=== PATIENT | male | born 1960 | race Hispanic/Latino ===

== ENCOUNTER 2019-11-30 14:02 | Emergency (ER) | payer MEDICARE ==
[2019-11-30 16:33] VITALS: BP 104/74
--- NOTE | 2019-11-30 17:35 | Ultrasound Report ---
US testicular doppler comp INDICATION / CLINICAL INFORMATION: swelling/pain left testicle. COMPARISON: None available. FINDINGS: Testicular echogenicity is slightly inhomogeneous but there are no testicular masses demonstrated. Doppler imaging shows normal testicular blood flow. There are small bilateral hydroceles. Right epididymis is normal. A 4 mm left epididymal cyst is demonstrated. There is a asymmetrical increased vascularity of the left epididymis. IMPRESSION: 1. Probable left epididymitis, small bilateral hydroceles. 2. No evidence of testicular torsion. Signer Name: Sánchez Stafford MD Signed: 11/30/2019 5:30 PM Workstation Name: [id number]
[2019-11-30] MEDS ORDERED: levoFLOXacin 500 MG TAB PO ONE (21:02)
[2019-11-30] MEDS ORDERED: ACETAMINOPHEN 500 MG TAB PO ONE (21:02)
--- NOTE | 2019-11-30 21:39 | Emergency Department Report ---
ED Male HPI - General Chief complaint: Urogenital-Male Stated complaint: SWOLLEN TESTTICLE, HAD OPEN HEART SURGERY Time Seen by Provider: 11/30/19 20:50 Source: patient Mode of arrival: Ambulatory Limitations: No Limitations - History of Present Illness Initial comments: Mr Morrissey is a 59-year-old white male. Who presents for less left testicular pain. Seen by his PCP today advised to present to ED to rule out torsion. Patient states left testicular pain for 2 days. There is no penile discharge no dysuria, frequency, or urgency. Patient denies history of prostate problem. Denies trauma. There is no fever, chills, nausea vomiting. No hernia history. And no abdominal pain. Symptoms are exacerbated by palpation. Symptoms are relieved by nothing tried. MD Complaint: testicle pain, testicle swelling Onset/Timin -: days(s) Location: left testicle Radiation: none Severity: moderate Severity scale (0 -10): 4 Quality: aching Consistency: constant Improves with: none Worsens with: palpation swelling. denies: discharge, mass, rash, urinary retention, blood in urine, dysuria, fever, nausea/vomiting, incontinence - Related Data Home Medications Medication Instructions Recorded Confirmed Last Taken Aspirin EC [Halfprin EC] 81 mg PO QDAY 12/16/13 11/21/15 05/24/14 08:00 81 MG Lisinopril 5 mg PO QDAY 12/16/13 11/21/15 05/24/14 08:00 5 MG carvediloL [Carvedilol] 3.125 mg PO BID 12/16/13 11/21/15 12/23/13 metFORMIN [Glucophage] 500 mg PO DAILY 11/21/15 11/21/15 Unknown Previous Rx's Medication Instructions Recorded Last Taken Type Carboxymethylcellulose Sodium 1 - 2 drop OS TID PRN #1 bottle 11/21/15 Unknown Rx [Lubricant Eye Drops 1%] HYDROcodone/APAP 5-325 [[place] 1 each PO Q6HR PRN #20 tablet 11/21/15 Unknown Rx 5/325] Prednisone [predniSONE 10 mg 10 mg PO .TAPER #1 tab.ds.pk 11/21/15 Unknown Rx (6-Day Pack, 21 Tabs)] Valacyclovir HCl [Valtrex] 1,000 mg PO TID #21 tablet 11/21/15 Unknown Rx levoFLOXacin [Levaquin TAB] 500 mg PO QDAY #10 tablet 11/30/19 Unknown Rx Allergies Allergy/AdvReac Type Severity Reaction Status Date / Time codeine AdvReac Unknown Verified 12/16/13 06:23 ED Review of Systems ROS: Stated complaint: SWOLLEN TESTTICLE, HAD OPEN HEART SURGERY Other details as noted in HPI Constitutional: denies: chills, fever Eyes: denies: eye pain, eye discharge, vision change ENT: denies: ear pain, throat pain Respiratory: denies: cough, shortness of breath, wheezing Cardiovascular: denies: chest pain, palpitations Endocrine: no symptoms reported Gastrointestinal: denies: abdominal pain, nausea, vomiting, diarrhea Genitourinary: testicular pain. denies: urgency, dysuria, frequency, hematuria, discharge, testicular mass Musculoskeletal: denies: back pain, joint swelling, arthralgia Skin: denies: rash, lesions Neurological: denies: headache, weakness, paresthesias Psychiatric: denies: anxiety, depression Hematological/Lymphatic: denies: easy bleeding, easy bruising ED Past Medical Hx - Past Medical History Previous Medical History?: Yes Hx Hypertension: Yes Hx Heart Attack/AMI: No Hx Congestive Heart Failure: No Hx Diabetes: Yes (type 2) Hx Deep Vein Thrombosis: No Hx Pulmonary Embolism: No Hx GERD: Yes Hx Renal Disease: No Hx Arthritis: No Hx Seizures: No Hx Asthma: No Hx COPD: No Additional medical history: Aortic valve replacement - Surgical History Past Surgical History?: Yes Hx Pacemaker: No Hx Cholecystectomy: No Hx Appendectomy: No Additional Surgical History: aortic valve replacement, spleenectomy - Social History Smoking Status: Never Smoker Substance Use Type: None - Medications Home Medications: Home Medications Medication Instructions Recorded Confirmed Last Taken Type Aspirin EC [Halfprin EC] 81 mg PO QDAY 12/16/13 11/21/15 05/24/14 08:00 History 81 MG Lisinopril 5 mg PO QDAY 12/16/13 11/21/15 05/24/14 08:00 History 5 MG carvediloL [Carvedilol] 3.125 mg PO BID 12/16/13 11/21/15 12/23/13 History Carboxymethylcellulose Sodium 1 - 2 drop OS TID PRN #1 bottle 11/21/15 Unknown Rx [Lubricant Eye Drops 1%] HYDROcodone/APAP 5-325 [[place] 1 each PO Q6HR PRN #20 tablet 11/21/15 Unknown Rx 5/325] Prednisone [predniSONE 10 mg 10 mg PO .TAPER #1 tab.ds.pk 11/21/15 Unknown Rx (6-Day Pack, 21 Tabs)] Valacyclovir HCl [Valtrex] 1,000 mg PO TID #21 tablet 11/21/15 Unknown Rx metFORMIN [Glucophage] 500 mg PO DAILY 11/21/15 11/21/15 Unknown History levoFLOXacin [Levaquin TAB] 500 mg PO QDAY #10 tablet 11/30/19 Unknown Rx ED Physical Exam - General Limitations: No Limitations General appearance: alert, in no apparent distress - Head Head exam: Present: atraumatic, normocephalic - Eye Eye exam: Present: normal appearance, PERRL, EOMI Pupils: Present: normal accommodation - ENT ENT exam: Present: mucous membranes moist - Neck Neck exam: Present: normal inspection, full ROM. Absent: tenderness - Respiratory Respiratory exam: Present: normal lung sounds bilaterally. Absent: respiratory distress - Cardiovascular Cardiovascular Exam: Present: regular rate, normal rhythm, normal heart sounds. Absent: systolic murmur, diastolic murmur, rubs, gallop - GI/Abdominal GI/Abdominal exam: Present: soft, normal bowel sounds. Absent: distended, tenderness, guarding, rebound, rigid, bruit, hernia - Rectal Rectal exam: Present: deferred - exam: Present: testicular tenderness (left epididymal tenderness ), scrotal swelling (left tesical ), circumcision. Absent: urethral discharge External exam: Absent: erythema, lesions, lacerations, ecchymosis, bleeding - Extremities Exam Extremities exam: Present: normal inspection, full ROM. Absent: tenderness - Back Exam Back exam: Present: normal inspection, full ROM. Absent: tenderness, CVA tenderness (R), CVA tenderness (L), rash noted - Neurological Exam Neurological exam: Present: alert, oriented X3, CN II-XII intact, normal gait - Psychiatric Psychiatric exam: Present: normal affect, normal mood - Skin Skin exam: Present: warm, dry, intact, normal color. Absent: rash ED Course Vital Signs 11/30/19 14:30 Temperature 98.4 F Pulse Rate 69 Respiratory 18 Rate Blood Pressure 104/74 O2 Sat by Pulse 97 Oximetry ED Medical Decision Making - Lab Data Labs 11/30/19 21:39 Urine Color Yellow Urine Turbidity Cloudy Urine pH 5.0 Ur Specific [place] 1.026 Urine Protein 30 mg/dl Urine Glucose (UA) Neg Urine Ketones 20 Urine Blood Mod Urine Nitrite Neg Urine Bilirubin Neg Urine Urobilinogen 2.0 Ur Leukocyte Esterase Lg Urine WBC (Auto) > 182.0 H Urine RBC (Auto) 20.0 U Epithel Cells (Auto) 1.0 Ur Transition Epith Cell 2 Urine Mucus 1+ - Radiology Data Radiology results: report reviewed, image reviewed Testicular US Findings Reporting MD: Sánchez Stafford Dictation Time: November 30, 2019 16:30 [employer]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 COMPARISON: None available. FINDINGS: Testicular echogenicity is slightly inhomogeneous but there are no testicular masses demonstrated. Doppler imaging shows normal testicular blood flow. There are small bilateral hydroceles. Right epididymis is normal. A 4 mm left epididymal cyst is demonstrated. There is a asymmetrical increased vascularity of the left epididymis. IMPRESSION: 1. Probable left epididymitis, small bilateral hydroceles. 2. No evidence of testicular torsion - Medical Decision Making US: left testicular Epididymitis, exam consistent with same, ua: pos for luek, wbc, rbc, pt is voiding without dysuria, no hematuria, Plan: dc to home with rx for levaquin, tylenol, follow up with urology for DX: Epididymitis, Hydroceles. Pt and verbalized agreement and understanding of discharge plan.. Critical care attestation.: If time is entered above; I have spent that time in minutes in the direct care of this critically ill patient, excluding procedure time. ED Disposition Clinical Impression: Epididymitis UTI (urinary tract infection) Qualifiers: Urinary tract infection type: acute cystitis Hematuria presence: without hematuria Qualified Code(s): N30.00 - Acute cystitis without hematuria Disposition: DC-01 TO HOME OR SELFCARE Is pt being admited?: No Does the pt Need Aspirin: No Condition: Stable Instructions: Epididymitis (ED), Urinary Tract Infection in Men (ED) Prescriptions: levoFLOXacin [Levaquin TAB] 500 mg PO QDAY #10 tablet Referrals: PEE BAINS MD [Primary Care Provider] - 3-5 Days NAN COLORADO MD [Staff Physician] - 3-5 Days Time of Disposition: 23:15
[2019-11-30 22:51] LABS: Bilirubin,Urine NEG (Negative); Blood,Urine MOD (Negative); Color,Urine Yellow (Yellow); Mucus,Urine 1+ /HPF
[2019-11-30 22:52] LABS: WBC,Urine > 182.0 /HPF (0.0-6.0)
[2019-11-30] MEDS ORDERED: LIDOCAINE-MPF (1%) 10 MG/1 ML VIAL 5 ML INFILTRATI ONE (23:10)
== END 2019-11-30 23:50 | disposition home or self-care (01) ==
LOC: ED 14:02
DX: N45.1 Epididymitis (principal); N39.0 Urinary tract infection, site not specified; E11.9 Type 2 diabetes mellitus without complications; I10 Essential (primary) hypertension; K21.9 Gastro-esophageal reflux disease without esophagitis; Z88.6 Allergy status to analgesic agent; Z79.82 Long term (current) use of aspirin; Z79.899 Other long term (current) drug therapy; Z98.890 Other specified postprocedural states
CPT/HCPCS: 81001; 93975; 96372; 99284; J0696